=== PATIENT | male | born 1965 | race African-American/Black ===

== ENCOUNTER 2016-06-08 23:30 | Emergency (ER) | payer OTHER ==
[~2016-06-08] VITALS: Ht 175.3 cm; Wt 117.9 kg
[2016-06-08] MEDS ORDERED: METFORMIN HCL500 MG PO (23:53)
[2016-06-08] MEDS ORDERED: LISINOPRIL10 MG PO (23:53)
[2016-06-08] MEDS ORDERED: INVOKANA300 MG PO (23:54)
[2016-06-08] MEDS ORDERED: AMARYL4 MG PO (23:55)
[2016-06-08] MEDS ORDERED: NORVASC5 MG PO (23:55)
[2016-06-08] MEDS ORDERED: SIMVASTATIN40 MG PO (23:56)
[2016-06-08] MEDS ORDERED: TOPROL XL100 MG PO (23:56)
[2016-06-08 23:58] LABS: ABSOLUTE NEUTROPHILS 5.4 thou/uL (1.4-8.2); BASOPHILS 0.9 % (0.0-2.0); EOSINOPHILS 3.1 % (0.0-3.0); HEMATOCRIT 43.4 % (42.0-52.0); HEMOGLOBIN 14.1 gm/dL (14.0-18.0); MCH 27.9 pg (26.0-34.0); MCHC 32.4 % (28.0-37.0); MCV 86.1 fL (80.0-100.0); PLATELET COUNT 341 thou/uL (150-400); RBC 5.04 mil/uL (4.50-6.00); RDW 14.5 % (10.5-14.5); WBC 9.8 thou/uL (4.0-11.0)
[2016-06-09 00:06] LABS: MANUAL DIFF NO
[2016-06-09 00:09] LABS: CALCIUM 9.8 mg/dL (8.5-10.1); CREATININE 1.9 mg/dL (0.6-1.3); POTASSIUM 4.2 mmol/L (3.5-5.1)
[2016-06-09 00:16] LABS: ALBUMIN 3.8 g/dL (3.4-5.0); DIRECT BILIRUBIN 0.1 mg/dL (<0.1-0.3); TOTAL BILIRUBIN 0.4 mg/dL (<0.1-1.0); TOTAL PROTEIN 8.4 g/dL (6.4-8.2)
[2016-06-09 00:48] LABS: URINE BILIRUBIN 1+ (Negative); URINE BLOOD NEGATIVE (Negative); URINE COLOR YELLOW; URINE GLUCOSE-RANDOM* 3+ (Negative); URINE KETONES TRACE (Negative); URINE NITRITE NEGATIVE (Negative); URINE PROTEIN (DIPSTICK) 2+ (Negative); URINE SPECIFIC GRAVITY >= 1.030 (1.003-1.035); URINE UROBILINOGEN 0.2 E.U./dl (0.2-1.0)
[2016-06-09 01:05] LABS: ICTOTEST (BILI CONFIRMATORY) Positive (Negative)
[2016-06-09 01:06] LABS: SQUAMOUS >10 Many /LPF (0-3)
[2016-06-09 01:07] LABS: CASTS None Seen /LPF (None Seen); HYALINE CASTS 4-10 Moderate /LPF (None Seen); URINE WBC 6-15 Few /HPF (0-5)
[2016-06-09 01:08] LABS: BACTERIA 1-9 Few /HPF (None Seen); CRYSTALS None Seen /LPF (None Seen); URINE RBC None Seen /HPF (0-2)
[2016-06-09] MEDS ORDERED: ONDANSETRON HCL4 M2 PO (01:11)
[2016-06-09 01:14] VITALS: BP 116/76
== END 2016-06-09 01:25 | disposition home or self-care (01) ==
LOC: ER 23:30
PROVIDERS: Nurse Practitioner
DX: R11.2 Nausea with vomiting, unspecified (principal); R10.13 Epigastric pain; I10 Essential (primary) hypertension; E11.9 Type 2 diabetes mellitus without complications; E78.5 Hyperlipidemia, unspecified; Z91.030 Bee allergy status